=== PATIENT | female | born 1960 | race Hispanic/Latino ===

== ENCOUNTER → 2017-03-03 | Outpatient (CLI) | payer OTHER ==
[~2017-03-03] MED LIST: IOPAMIDOL-370 75 ML VIAL IV ONE
== END | disposition home or self-care (01) ==
LOC: OIH 09:43
PROVIDERS: ATTEND Physician Assistant Medical
DX: K63.89 Other specified diseases of intestine (principal)
CPT/HCPCS: 74178; Q9967